=== PATIENT | female | born 1995 | race African-American/Black ===

== ENCOUNTER 2017-03-14 15:09 | Emergency (ER) | payer OTHER, BC ==
[~2017-03-14] VITALS: Ht 165.1 cm; Wt 59.0 kg
[2017-03-14 15:33] VITALS: BP 114/67
--- NOTE | 2017-03-14 16:11 | RAD ---
Left knee radiographs History: Fall today, pain. Comparison: None. Findings: AP, lateral, oblique, and merchant view of the left knee. No acute fracture or dislocation is identified. No joint effusion is seen. Impression: No acute osseous traumatic injury identified.
[2017-03-14] MEDS ORDERED: MORP15TA PO (16:17)
--- NOTE | 2017-03-14 16:17 | PHYS DOC ---
Past History Past Medical History: Asthma Past Surgical History: No Surgical History Alcohol Use: None Drug Use: None Adult General Chief Complaint Chief Complaint: KNEE INJURY HPI HPI 21-year-old female presenting to the emergency department today with left knee pain on the lateral side of her left knee. She reports somebody fell on her while she was at work around 1:30 today. She has pain that is mild to moderate worse with walking and not associated with swelling. She was able to ambulate after the incident. She denies any ankle or hip pain. Nonradiating. Review of systems is negative for chest pain shortness of breath. She denies weakness weakness or tingling in the patient's foot. All other review of systems is negative unless otherwise noted in history of present illness. Review of Systems Review of Systems SEE ABOVE. Allergies Allergies Allergies Coded Allergies Type Severity Reaction Last Updated Verified Penicillins Allergy Unknown 03/14/17 Yes ibuprofen Allergy Unknown 03/14/17 Yes Physical Exam Physical Exam Constitutional: Well developed, well nourished, no acute distress, non-toxic appearance. HENT: Normocephalic, atraumatic, bilateral external ears normal, oropharynx moist, no oral exudates, nose normal. [] Eyes: PERRLA, EOMI, conjunctiva normal, no discharge. Neck: Normal range of motion, no tenderness, supple, no stridor. [] Cardiovascular:Heart rate regular rhythm, no murmur Lungs & Thorax: Bilateral breath sounds clear to auscultation [] Abdomen: Bowel sounds normal, soft, no tenderness, no masses, no pulsatile masses. Skin: Warm, dry, no erythema, no rash. Back: No tenderness, no CVA tenderness. [] Extremities: The patient's left knee is warm and well perfused with a palpable pulse. No swelling of the knee joint present. Tenderness to palpation along the lateral collateral ligament. The knee is stable. Negative Ross's test. Pain with valgus stress Neurologic: Alert and oriented X 3, normal motor function, normal sensory function, no focal deficits noted. [] Psychologic: Affect normal, judgement normal, mood normal. Current Patient Data Vital Signs Vital Signs Date Time Temp Pulse Resp B/P Pulse Ox O2 Delivery O2 Flow Rate FiO2 03/14/17 15:33 97.7 74 18 Room Air 99 EKG EKG [] Radiology/Procedures Radiology/Procedures [] Course & Med Decision Making Course & Med Decision Making Pertinent Labs and Imaging studies reviewed. (See chart for details) [] 21-year-old female presenting to the emergency department today with left- sided knee pain. X-rays were obtained which showed no obvious fracture dislocation. She was in discharged home with oral pain medication and crutches to follow-up with her primary care physician for repeat knee exam in approximate 4-5 days and possible outpatient MRI if the patient's symptoms continue. Dragon Disclaimer Dragon Disclaimer This chart was dictated in whole or in part using Voice Recognition software in a busy, high-work load, and often noisy Emergency Department environment. It may contain unintended and wholly unrecognized errors or omissions. Departure Departure: Impression: Primary Impression: Left knee pain Disposition: HOME, SELF-CARE Condition: STABLE Referrals: [facility] (PCP) BEVERLEY WILEY DO Patient Instructions: Knee Pain Additional Instructions: Thank you for allowing us to participate in your care today. Followup with your primary care physician in 4-5 days if your symptoms do not improve. If you do not have a primary care provider you can ask for a list of our primary care providers. Return to the emergency department you have any new or concerning findings. This should be evaluated by the primary care physician and any necessary consulting services for continued management within a few days after discharge. Return to emergency room if you have any new or concerning symptoms including but not limited to fever, chills, nausea, vomiting, intractable pain, any new rashes, chest pain, shortness of air, uncontrolled bleeding, difficulty breathing, and/or vision loss. You may have been prescribed medication that can change in your level of thinking and ability to operate machinery. These medications include hydrocodone and Ativan. Also, Benadryl has been known to do this as well. Be sure to check with your pharmacist and ask if the medications you've prescribed can affect your level of consciousness. I recommend not operating heavy machinery or driving while on medication such as these. Scripts Morphine Sulfate 15 Mg Tablet1 Tab PO PRN Q8HRS PRN SEVERE PAIN #8 TAB Be careful as this medication may make you sleepy or drowsy. Do not drive or operate heavy machinery on this medication. Be sure to ask the pharmacist about other side effects that can exist such as constipation. Prov:JAMIE RIOS MD 03/14/17 JAMIE RIOS MD Mar 14, 2017 16:17
== END 2017-03-14 16:24 | disposition home or self-care (01) ==
LOC: ER 15:09
DX: M25.562 Pain in left knee (principal); R22.42 Localized swelling, mass and lump, left lower limb; J45.909 Unspecified asthma, uncomplicated; Z88.0 Allergy status to penicillin; Z88.6 Allergy status to analgesic agent; W50.0XXA Accidental hit or strike by another person, initial encounter; Y93.89 Activity, other specified; Y99.8 Other external cause status; Y92.89 Other specified places as the place of occurrence of the external cause
CPT/HCPCS: 73564; 99284